=== PATIENT | female | born 1995 | race Caucasian/White ===

== ENCOUNTER 2019-12-29 17:17 | Inpatient (IN) | payer MEDICAID ==
[~2019-12-29] VITALS: Ht 160 cm; Wt 69.4 kg
[2019-12-29 17:47] LABS: APPEARANCE,URINE CLOUDY (CLEAR); BILIRUBIN,URINE MODERATE (NEGATIVE); COLOR,URINE YELLOW (YELLOW); GLUCOSE, URINE (UA) NEGATIVE (NEGATIVE); KETONES,URINE NEGATIVE (NEGATIVE); LEUKOCYTE ESTERASE ,URINE NEGATIVE (NEGATIVE); NITRATE,URINE NEGATIVE (NEGATIVE); OCCULT BLOOD,URINE TRACE-INTACT (NEGATIVE); PH,URINE 8.5 (5.0-8.0); PROTEIN,URINE 100 mg/dL (NEGATIVE); UROBILINOGEN,URINE >=8.0 mg/dL (0.2-1.0)
[2019-12-29 18:00] LABS: HCG,QUAL RESULT NEGATIVE (NEGATIVE)
[2019-12-29] MEDS ORDERED: ONDANSETRON HCL 4 MG/2 ML VIAL ONE (18:00)
[2019-12-29] MEDS ORDERED: KETOROLAC TROMETHAMINE 30MG/ML ONE (18:00)
[2019-12-29 18:06] LABS: HEMATOCRIT 37.9 % (36-48); LYMPHOCYTES % (AUTO) 22.9 % (21.0-51.0); MEAN CORPUSCULAR HEMOGLOBIN 30.9 pg (27.0-33.0); MEAN CORPUSCULAR HGB CONC 36.4 g/dL (32.0-36.0); MEAN CORPUSCULAR VOLUME 84.8 fL (79-99); MONOCYTES % (AUTO) 10.8 % (3.0-13.0); NEUTROPHILS % (AUTO) 65.7 % (40.0-77.0); PLATELET COUNT (AUTO) 53 K/uL (130-400); RED BLOOD CELL COUNT(AUTO) 4.47 MIL/uL (4.00-5.50); RED CELL DISTRIBUTION WIDTH 12.4 % (11.0-15.5); WHITE BLOOD COUNT (AUTO) 1.7 K/uL (4.8-10.8)
[2019-12-29 18:15] LABS: BACTERIA,URINE Few /HPF (None Seen); SQUAMOUS EPITHELIAL CELL,UR Moderate /HPF (0-2); TRANSITIONAL EPI CELLS,URINE Few /HPF (None Seen)
[2019-12-29 18:35] LABS: CREATININE 0.8 mg/dL (0.5-1.5); POTASSIUM 3.9 mmol/L (3.5-5.1)
[2019-12-29 18:45] LABS: ALBUMIN 3.6 g/dL (3.5-5.0); BILIRUBIN,TOTAL 2.6 mg/dL (0.2-1.0); TOTAL PROTEIN, SERUM 6.7 g/dL (6.0-8.3)
[2019-12-29] MEDS ORDERED: CEFTRIAXONE SODIUM 1 GM ONE (18:56)
[2019-12-29] MEDS ORDERED: SODIUM CHLORIDE 0.9% 100 ML IV ONE (18:56)
[2019-12-29] MEDS ORDERED: ONDANSETRON ODT 4 MG TAB PO PRN (20:15)
[2019-12-29] MEDS ORDERED: ACETAMINOPHEN 325 MG TAB ONE (20:28)
[2019-12-29 20:48] LABS: INR 1.14 (0.85-1.15); PARTIAL THROMBOPLASTIN TIME 46.4 SEC (26.3-35.5); PROTHROMBIN TIME 12.2 SEC (9.6-11.6)
[2019-12-29 22:35] VITALS: BP 111/63
--- NOTE | 2019-12-29 22:45 | NUR ---
ADMIT NOTE ADMIT TO ROOM 311 VIA STRETCHER FROM ER. PATIENT AWAKE, ALERT, OX3, NO SOB, NO C.O PAIN AT THIS TIME, RIGHT FOREARM 20 GAUGE CATHETER PATENT, TEACH PATIENT PLAN OF CARE AND EXPECTED OUTCOME, PATIENT VERBALIZES UNDERSTANDING VIA TEACH BACK
[2019-12-29] MEDS ORDERED: NITR100C9 PO (22:50)
[2019-12-29] MEDS ORDERED: NAPR250T4 PO (22:50)
[2019-12-30 04:00] VITALS: BP 112/62
[2019-12-30 04:58] LABS: HEMATOCRIT 33.7 % (36-48); MEAN CORPUSCULAR HEMOGLOBIN 30.8 pg (27.0-33.0); MEAN CORPUSCULAR HGB CONC 36.8 g/dL (32.0-36.0); MEAN CORPUSCULAR VOLUME 83.6 fL (79-99); PLATELET COUNT (AUTO) 41 K/uL (130-400); RED BLOOD CELL COUNT(AUTO) 4.03 MIL/uL (4.00-5.50); RED CELL DISTRIBUTION WIDTH 12.4 % (11.0-15.5); WHITE BLOOD COUNT (AUTO) 1.5 K/uL (4.8-10.8)
[2019-12-30 05:22] LABS: CREATININE 0.7 mg/dL (0.5-1.5); POTASSIUM 3.8 mmol/L (3.5-5.1)
[2019-12-30 08:00] VITALS: BP 108/68
[2019-12-30 11:00] VITALS: BP 105/63
--- NOTE | 2019-12-30 11:00 | NUR ---
NO ANSWER TO CONTACT NUMBERS . W WILL RE ATTEMPT DETIALED CM ASSESSMENT FOR DC PLANNING Addendum: 12/31/19 at 1917 by SAROJ MAYA RN CM Amended: Links added.
[2019-12-30] MEDS: ZOSYN 3.375GM+NS 50ML 50 ML IV SCH ×2 (14:34→21:03)
[2019-12-30] MEDS: MORPHINE SULFATE 2 MG/ML 1ML SYG IVP PRN ×2 (14:37→20:17)
[2019-12-30] MEDS: ONDANSETRON HCL 4 MG/2 ML VIAL IVP PRN ×3 (14:37→20:17)
[2019-12-30] MEDS: DEXTROSE 5 % AND 0.9 % NACL 1,000 ML IV SCH (14:49)
[2019-12-30 16:00] VITALS: BP 103/58
[2019-12-30] MEDS: DOXYCYCLINE 100MG+NS 250ML 250 ML IV SCH (16:19)
[2019-12-30] MEDS: ACETAMINOPHEN 325 MG TAB PO PRN (16:32)
[2019-12-30] MEDS ORDERED: CEFTRIAXONE SODIUM 1 GM IVP SCH (18:00)
[2019-12-30 19:54] VITALS: BP 95/57
[2019-12-30 20:35] LABS: AMPHET/METH SCREEN,URINE NEGATIVE (NEGATIVE); BARBITURATE SCREEN, URINE NEGATIVE (NEGATIVE); BENZODIAZEPINES SCREEN,URINE NEGATIVE (NEGATIVE); CANNABINOID SCREEN,URINE POSITIVE (NEGATIVE); COCAINE SCREEN,URINE POSITIVE (NEGATIVE); OPIATE SCREEN,URINE NEGATIVE (NEGATIVE); PHENCYCLIDINE SCREEN,URINE NEGATIVE (NEGATIVE)
[2019-12-31] VITALS (13 sets, daily range): BP systolic 90–115; BP diastolic 50–69
[2019-12-31] MEDS: DOXYCYCLINE 100MG+NS 250ML 250 ML IV SCH ×2 (01:15→12:42)
[2019-12-31] MEDS: DEXTROSE 5 % AND 0.9 % NACL 1,000 ML IV SCH ×2 (01:15→19:37)
[2019-12-31] MEDS: ONDANSETRON HCL 4 MG/2 ML VIAL IVP PRN ×3 (01:59→17:31)
[2019-12-31] MEDS: ACETAMINOPHEN 325 MG TAB PO PRN ×3 (01:59→22:01)
[2019-12-31] MEDS: MORPHINE SULFATE 2 MG/ML 1ML SYG IVP PRN ×3 (01:59→17:31)
[2019-12-31] MEDS: ZOSYN 3.375GM+NS 50ML 50 ML IV SCH ×3 (05:35→21:38)
[2019-12-31] MEDS ORDERED: MIDAZOLAM HCL 1 MG/ML 2ML VIAL ONE (14:14)
[2019-12-31] MEDS ORDERED: FENTANYL CITRATE PF 50 MCG/1 ML 2ML VIAL ONE (14:14)
--- NOTE | 2019-12-31 15:15 | NUR ---
CT GD RT ILIAC BONE MARROW BX/ASPIRATION PROCEDURE PERFORMED BY DR Jade ZHAO. PUNCTURE SITE RT BOTTOCK AND PATIENT TOLERATED PROCEDURE WELL. SPECIMEN X 8 COLLECTED AND SENT TO LAB. END OF PROCEDURE AT 1455. BIOPSY NEEDLE REMOVED AND DRESSING APPLIED. NO BLEEDING NOTED. REPORT GIVEN TO Radha CHEN LVN AND PATIENT TRANSPORTED TO [facility] VIA BED AT 1515. AAO X3 WITH NO C/O PAIN.
--- NOTE | 2019-12-31 16:00 | NUR ---
MET WITH PATIENT AT BEDSIDE. LIVES WITH DAUGHTER . CHERELLE AND SISTER PROVIDER SERGE. INDEPENDENT, DRIVES, NO TRINO BROUSSARD FOR DC PLANNING Addendum: 12/31/19 at 1916 by SAROJ MAYA RN CM Amended: Links added.
--- NOTE | 2019-12-31 17:00 | NUR ---
DISCUSSED PATIENT'S POSITIVE UDS. PT STATES YES SHE TIRED IT ONCE , BUT THAT HER 'BOYFRIEND ALSO TOOK SOME AT THE SAME TIME AND HE IS FINE, SO IT CAN'T BE THAT.' COUNSELLED PATIENT ON THE PERILS OF DRUG ADDITIVES AND FILLERS. PATIENT TEARFUL. STATES WILL AVOID INGESTING TOXINS IN THE FUTURE Addendum: 12/31/19 at 1920 by SAROJ MAYA RN CM Amended: Links added.
--- NOTE | 2019-12-31 21:00 | NUR ---
assessment note patient awake, alert, ox3, no sob, no c/o pain at this time, encourage po fluids as tolerated, ivf infusing well, dressing lower back intact with minimal shadowing, teach patient plan of care and expected outcome
[2020-01-01] VITALS (7 sets, daily range): BP systolic 82–119; BP diastolic 43–72
[2020-01-01] MEDS: ONDANSETRON HCL 4 MG/2 ML VIAL IVP PRN ×2 (00:03→10:28)
[2020-01-01] MEDS: MORPHINE SULFATE 2 MG/ML 1ML SYG IVP PRN ×3 (00:04→23:46)
[2020-01-01] MEDS: DOXYCYCLINE 100MG+NS 250ML 250 ML IV SCH ×2 (00:04→12:43)
[2020-01-01] MEDS: ACETAMINOPHEN 325 MG TAB PO PRN ×3 (03:18→21:05)
[2020-01-01] MEDS: ZOSYN 3.375GM+NS 50ML 50 ML IV SCH ×3 (04:51→21:08)
[2020-01-01] MEDS: DEXTROSE 5 % AND 0.9 % NACL 1,000 ML IV SCH ×2 (04:59→12:43)
[2020-01-01 06:06] LABS: HEMATOCRIT 30.5 % (36-48); MEAN CORPUSCULAR HEMOGLOBIN 30.8 pg (27.0-33.0); MEAN CORPUSCULAR HGB CONC 36.7 g/dL (32.0-36.0); MEAN CORPUSCULAR VOLUME 83.8 fL (79-99); RED BLOOD CELL COUNT(AUTO) 3.64 MIL/uL (4.00-5.50); RED CELL DISTRIBUTION WIDTH 12.4 % (11.0-15.5); WHITE BLOOD COUNT (AUTO) 4.2 K/uL (4.8-10.8)
[2020-01-01 06:40] LABS: ALBUMIN 2.4 g/dL (3.5-5.0); BILIRUBIN,TOTAL 1.5 mg/dL (0.2-1.0); CREATININE 0.9 mg/dL (0.5-1.5); MAGNESIUM 1.8 mg/dL (1.80-2.40); POTASSIUM 3.5 mmol/L (3.5-5.1); TOTAL PROTEIN, SERUM 5.1 g/dL (6.0-8.3)
[2020-01-01 07:15] LABS: HEPATITIS A ANTIBODY IGM Negative (Negative); HEPATITIS B CORE IGM Negative (Negative); HEPATITIS Bs ANTIGEN SCREEN P Negative (Negative)
[2020-01-02] MEDS: DOXYCYCLINE 100MG+NS 250ML 250 ML IV SCH ×2 (01:26→13:56)
[2020-01-02 03:30] VITALS: BP 105/72
[2020-01-02] MEDS: ACETAMINOPHEN 325 MG TAB PO PRN ×3 (04:47→15:23)
[2020-01-02] MEDS: ZOSYN 3.375GM+NS 50ML 50 ML IV SCH ×3 (05:37→21:11)
[2020-01-02 08:36] VITALS: BP 109/74
[2020-01-02 11:49] VITALS: BP 107/80
[2020-01-02] MEDS: ONDANSETRON HCL 4 MG/2 ML VIAL IVP PRN ×2 (14:41→19:34)
[2020-01-02] MEDS: MORPHINE SULFATE 2 MG/ML 1ML SYG IVP PRN ×2 (14:41→21:11)
[2020-01-02 16:14] VITALS: BP 111/79
[2020-01-02] MEDS: DEXTROSE 5 % AND 0.9 % NACL 1,000 ML IV SCH ×2 (17:13→21:15)
[2020-01-02 19:20] VITALS: BP 102/64
[2020-01-02 23:46] VITALS: BP 92/57
[2020-01-03] MEDS ORDERED: DOXYCYCLINE 100MG+NS 250ML 250 ML IV ONE (01:33)
[2020-01-03] MEDS: DEXTROSE 5 % AND 0.9 % NACL 1,000 ML IV SCH (01:38)
[2020-01-03] MEDS: DOXYCYCLINE 100MG+NS 250ML 250 ML IV SCH ×2 (01:39→12:32)
[2020-01-03 03:44] VITALS: BP 106/64
[2020-01-03] MEDS: MORPHINE SULFATE 2 MG/ML 1ML SYG IVP PRN ×2 (03:47→10:38)
[2020-01-03] MEDS: ZOSYN 3.375GM+NS 50ML 50 ML IV SCH ×2 (05:49→15:00)
[2020-01-03 08:12] VITALS: BP 109/75
[2020-01-03] MEDS: ONDANSETRON HCL 4 MG/2 ML VIAL IVP PRN (10:38)
[2020-01-03] MEDS ORDERED: MAGNESIUM 4GM PREMIX 100ML 100 ML IV PRN (11:30)
[2020-01-03 12:19] LABS: HEMATOCRIT 30.3 % (36-48); MEAN CORPUSCULAR HEMOGLOBIN 30.3 pg (27.0-33.0); MEAN CORPUSCULAR HGB CONC 36.6 g/dL (32.0-36.0); MEAN CORPUSCULAR VOLUME 82.8 fL (79-99); RED BLOOD CELL COUNT(AUTO) 3.66 MIL/uL (4.00-5.50); RED CELL DISTRIBUTION WIDTH 12.9 % (11.0-15.5); WHITE BLOOD COUNT (AUTO) 9.2 K/uL (4.8-10.8)
[2020-01-03 12:30] LABS: CREATININE 0.7 mg/dL (0.5-1.5); POTASSIUM 3.2 mmol/L (3.5-5.1)
--- NOTE | 2020-01-03 14:11 | NUR ---
RD NOTIFICATION Pt admitted with UTI. No significant medical history. Regular diet order in place. Pt with poor PO intake. Stays hydrated but disinterested in food as per RN. Pt previously with N/V. Pending CT. Elevated LFT's. Room phone not working. Overweight status. No report of weight loss. Recommend offering snacks between meals Recommend trial of Ensure QD RD to continue to monitor. Please notify as additional nutrition concerns arise. Thank you. Addendum: 01/03/20 at [address] Amended: Links added.
[2020-01-03] MEDS ORDERED: POTASSIUM CHLORIDE 20 MEQ ERTAB PO SCH (14:15)
[2020-01-03 14:57] VITALS: BP 103/67
[2020-01-03] MEDS ORDERED: DIATR MEGLU/DIATRIZOATE SODIUM 30 ML BOTTLE ONE (15:22)
[2020-01-03 16:10] LABS: ROCKY MT SPOTTED FEVER IGG <1:64 (Neg:<1:64); TYPHUS FEVER AB IGG <1:64 (Neg:<1:64)
[2020-01-03] MEDS ORDERED: IOHEXOL-350 75 ML VIAL IV ONE (17:22)
[2020-01-03] MEDS: ACETAMINOPHEN 325 MG TAB PO PRN (18:54)
--- NOTE | 2020-01-03 19:50 | NUR ---
CT RESULT REPORTED TO DR QUINTERO AND ORDERS RECEIVED TO DISCHARGE PATIENT FOLLOW-UP WITH DR ERNST IN ONE WEEK
[2020-01-03 20:13] VITALS: BP 107/71
--- NOTE | 2020-01-03 20:36 | NUR ---
DISCHARGE INSTRUCTIONS GIVEN TO PATIENT. PT VERBALIZED AN UNDERSTANDING. IV REMOVED WITH CATH INTACT. PT ACCOMPANIED TO ER LOBBY FOR DISCHARGE. NO DISTRESS NOTED.
== END 2020-01-03 20:35 | disposition home or self-care (01) | DRG 720 ==
LOC: EDH 17:17 → EDHIP 17:18 → UNDOADMIN 19:48 → 3BH 21:18
PROVIDERS: ADMIT Internal Medicine Infectious Disease; ATTEND Internal Medicine Infectious Disease
PROC: 07DR3ZX Extraction of Iliac Bone Marrow, Percutaneous Approach, Diagnostic (ICD-10-PCS; principal; 2019-12-31)
DX: A41.9 Sepsis, unspecified organism (principal); N39.0 Urinary tract infection, site not specified; D61.818 Other pancytopenia; F14.10 Cocaine abuse, uncomplicated; F12.10 Cannabis abuse, uncomplicated; R74.8 Abnormal levels of other serum enzymes; Z20.828 Contact with and (suspected) exposure to other viral communicable diseases; E83.42 Hypomagnesemia; E87.6 Hypokalemia; F19.10 Other psychoactive substance abuse, uncomplicated
CPT/HCPCS: 36415; 38222; 74176; 74177; 80048; 80053; 80074; 80305; 81001; 81025; 82550; 83605; 83735; 84145; 85025; 85027; 85610; 85730; 86308; 86665; 86701; 86757; 87040; 87390; 87486; 87536; 87797; 87902; G0378; J0696; J1885; J2250; J2405; J2543; J3010; J3475; J3490; J7042; Q9963; Q9967; U0003

== ENCOUNTER 2020-10-04 18:13 | Emergency (ER) | payer MEDICAID ==
[~2020-10-04] VITALS: Ht 160 cm; Wt 70.3 kg
[~2020-10-04 18:13] MED LIST: NAPR-1196 PO; NITR100C9 PO
[2020-10-04 18:44] LABS: BASOPHILS % (AUTO) 0.3 % (0.0-5.0); EOSINOPHILS % (AUTO) 1.2 % (0.0-8.0); HEMATOCRIT 42.8 % (36-48); LYMPHOCYTES % (AUTO) 12.1 % (21.0-51.0); MEAN CORPUSCULAR HEMOGLOBIN 32.6 pg (27.0-33.0); MEAN CORPUSCULAR VOLUME 90.7 fL (79-99); MONOCYTES % (AUTO) 8.2 % (3.0-13.0); NEUTROPHILS % (AUTO) 77.9 % (40.0-77.0); PLATELET COUNT (AUTO) 229 K/uL (130-400); RED BLOOD CELL COUNT(AUTO) 4.72 MIL/uL (4.00-5.50); RED CELL DISTRIBUTION WIDTH 12.3 % (11.0-15.5); WHITE BLOOD COUNT (AUTO) 7.3 K/uL (4.8-10.8)
[2020-10-04 18:56] LABS: CREATININE 0.9 mg/dL (0.5-1.5); POTASSIUM 4.2 mmol/L (3.5-5.1)
[2020-10-04 19:01] LABS: ALBUMIN 4.5 g/dL (3.5-5.0); BILIRUBIN,TOTAL 0.8 mg/dL (0.2-1.0); TOTAL PROTEIN, SERUM 7.8 g/dL (6.0-8.3)
[2020-10-04 19:05] LABS: INR 1.04 (0.85-1.15); PROTHROMBIN TIME 11.3 SEC (9.6-11.6)
[2020-10-04 19:06] LABS: PARTIAL THROMBOPLASTIN TIME 26.6 SEC (26.3-35.5)
[2020-10-04 21:01] VITALS: BP 91/77
[2020-10-04] MEDS ORDERED: ACETAMINOPHEN WITH CODEINE 1 TAB TAB PO ONE (21:35)
[2020-10-04] MEDS ORDERED: PHEN1PAC8 PO (22:00)
== END 2020-10-04 22:09 | disposition home or self-care (01) ==
LOC: EDH 18:13
DX: J06.9 Acute upper respiratory infection, unspecified (principal); Z20.822 Contact with and (suspected) exposure to COVID-19; Z79.1 Long term (current) use of non-steroidal anti-inflammatories (NSAID)
CPT/HCPCS: 36415; 71045; 80053; 81025; 85025; 85610; 85730; 87426; 87635; 87804 ×2; 99284; C9803

== ENCOUNTER 2022-03-24 09:19 | Emergency (ER) | payer MEDICAID ==
[~2022-03-24] VITALS: Ht 160 cm; Wt 68.0 kg
[~2022-03-24 09:19] MED LIST changes: +PHEN1PAC8 PO
[2022-03-24 09:42] LABS: BASOPHILS % (AUTO) 0.5 % (0.0-5.0); EOSINOPHILS % (AUTO) 2.4 % (0.0-8.0); HEMATOCRIT 45.9 % (36-48); LYMPHOCYTES % (AUTO) 25.8 % (21.0-51.0); MEAN CORPUSCULAR HEMOGLOBIN 32.2 pg (27.0-33.0); MEAN CORPUSCULAR HGB CONC 36.4 g/dL (32.0-36.0); MEAN CORPUSCULAR VOLUME 88.4 fL (79-99); MONOCYTES % (AUTO) 9.7 % (3.0-13.0); NEUTROPHILS % (AUTO) 61.4 % (40.0-77.0); PLATELET COUNT (AUTO) 242 K/uL (130-400); RED BLOOD CELL COUNT(AUTO) 5.19 MIL/uL (4.00-5.50); RED CELL DISTRIBUTION WIDTH 12.2 % (11.0-15.5); WHITE BLOOD COUNT (AUTO) 8.4 K/uL (4.8-10.8)
[2022-03-24 09:51] LABS: CARBON DIOXIDE 28 mmol/L (21-32); CHLORIDE 102 mmol/L (101-111); CREATININE 0.8 mg/dL (0.5-1.5); GLOMERULAR FILTR. RATE CALC 91 mL/min (>60); GLUCOSE,RANDOM 97 mg/dL (70-105); POTASSIUM 3.6 mmol/L (3.5-5.1); SODIUM SERUM 140 mmol/L (136-145); UREA NITROGEN, BLOOD 16 mg/dL (7-18)
[2022-03-24 09:59] LABS: APPEARANCE,URINE CLEAR (CLEAR); BILIRUBIN,URINE NEGATIVE (NEGATIVE); COLOR,URINE LIGHT-YELLOW (YELLOW); GLUCOSE, URINE (UA) NEGATIVE (NEGATIVE); KETONES,URINE NEGATIVE (NEGATIVE); LEUKOCYTE ESTERASE ,URINE NEGATIVE Leu/uL (NEGATIVE); NITRATE,URINE NEGATIVE (NEGATIVE); OCCULT BLOOD,URINE SMALL (NEGATIVE); PH,URINE 6.5 (5.0-8.0); PROTEIN,URINE NEGATIVE (NEGATIVE); UROBILINOGEN,URINE 0.2 mg/dL (0.2-1.0)
[2022-03-24 10:01] LABS: ALANINE AMINOTRANSFERASE 62 U/L (12-78); ALBUMIN 4.6 g/dL (3.5-5.0); ALCOHOL, BLOOD < 3 mg/dL (0-10); ASPARTATE AMINOTRANSFERASE 39 U/L (10-37); HCG,QUANTITATIVE 0 mIU/mL (0-5); TOTAL PROTEIN, SERUM 8.2 g/dL (6.0-8.3)
[2022-03-24 10:02] LABS: AMPHET/METH SCREEN,URINE NEGATIVE (NEGATIVE); BARBITURATE SCREEN, URINE NEGATIVE (NEGATIVE); BENZODIAZEPINES SCREEN,URINE NEGATIVE (NEGATIVE); CANNABINOID SCREEN,URINE POSITIVE (NEGATIVE); COCAINE SCREEN,URINE POSITIVE (NEGATIVE); OPIATE SCREEN,URINE NEGATIVE (NEGATIVE); PHENCYCLIDINE SCREEN,URINE NEGATIVE (NEGATIVE)
[2022-03-24 10:08] LABS: ACETAMINOPHEN < 1 mcg/mL (10-30); SALICYLATE < 2.8 mg/dL (2.8-20.0)
[2022-03-24 10:35] LABS: BACTERIA,URINE RARE /HPF (None Seen); SQUAMOUS EPITHELIAL CELL,UR MOD /HPF (0-2)
[2022-03-24 10:44] LABS: ALCOHOL, BLOOD < 3 mg/dL (0-10); CREATINE KINASE, TOTAL 113 U/L (21-232)
[2022-03-24 10:50] LABS: ACETAMINOPHEN < 1 mcg/mL (10-30); SALICYLATE < 2.8 mg/dL (2.8-20.0)
[2022-03-24 12:25] VITALS: BP 131/81
== END 2022-03-24 14:19 | disposition home or self-care (01) ==
LOC: EDH 09:19
DX: F22 Delusional disorders (principal); F19.10 Other psychoactive substance abuse, uncomplicated; D64.9 Anemia, unspecified; Z20.822 Contact with and (suspected) exposure to COVID-19
CPT/HCPCS: 99285; 71045; 87635; 82550; 84484; 80053; 80305; 84703; 84702; 85025; 87880; 87804 ×2; 81001; 36415; 93005 ×2; C9803; G0481 ×2

== ENCOUNTER 2022-11-02 11:54 | Emergency (ER) | payer MEDICAID ==
[~2022-11-02] VITALS: Ht 160 cm; Wt 68.0 kg
[2022-11-02 12:27] LABS: BASOPHILS % (AUTO) 0.3 % (0.0-5.0); EOSINOPHILS % (AUTO) 0.1 % (0.0-8.0); HEMATOCRIT 37.7 % (36-48); MEAN CORPUSCULAR HEMOGLOBIN 31.9 pg (27.0-33.0); MEAN CORPUSCULAR HGB CONC 36.6 g/dL (32.0-36.0); MEAN CORPUSCULAR VOLUME 87.3 fL (79-99); MONOCYTES % (AUTO) 7.8 % (3.0-13.0); NEUTROPHILS % (AUTO) 85.5 % (40.0-77.0); PLATELET COUNT (AUTO) 188 K/uL (130-400); RED BLOOD CELL COUNT(AUTO) 4.32 MIL/uL (4.00-5.50); WHITE BLOOD COUNT (AUTO) 10.9 K/uL (4.8-10.8)
[2022-11-02 12:33] LABS: APPEARANCE,URINE CLEAR (CLEAR); BILIRUBIN,URINE NEGATIVE (NEGATIVE); COLOR,URINE YELLOW (YELLOW); GLUCOSE, URINE (UA) NEGATIVE (NEGATIVE); KETONES,URINE NEGATIVE (NEGATIVE); LEUKOCYTE ESTERASE ,URINE NEGATIVE Leu/uL (NEGATIVE); NITRATE,URINE NEGATIVE (NEGATIVE); OCCULT BLOOD,URINE SMALL (NEGATIVE); PH,URINE 6.5 (5.0-8.0); PROTEIN,URINE 10 mg/dL (NEGATIVE)
[2022-11-02 12:38] LABS: HCG,QUALITATIVE URINE NEGATIVE (NEGATIVE)
[2022-11-02 12:40] LABS: SQUAMOUS EPITHELIAL CELL,UR MOD /HPF (0-2)
[2022-11-02 12:47] LABS: ALBUMIN 3.9 g/dL (3.5-5.0); CREATININE 0.7 mg/dL (0.5-1.5); POTASSIUM 3.2 mmol/L (3.5-5.1); TOTAL PROTEIN, SERUM 7.6 g/dL (6.0-8.3)
[2022-11-02] MEDS ORDERED: KETOROLAC 30MG VIAL (30MG/ML) ONE (13:08)
[2022-11-02] MEDS ORDERED: KETOROLAC 30MG VIAL (30MG/ML) IVP ONE (13:30)
[2022-11-02] MEDS ORDERED: CEFTRIAXONE 1G VIAL IVPB ONE (14:30)
[2022-11-02] MEDS ORDERED: MORPHINE 4 MG SYG IVP ONE (15:30)
[2022-11-02] MEDS ORDERED: ONDANSETRON 4MG INJ ONE (16:04)
[2022-11-02] MEDS ORDERED: IBUP-2070 PO (16:22)
[2022-11-02] MEDS ORDERED: CIPR-278 PO (16:22)
[2022-11-02] MEDS ORDERED: ONDANSETRON 4MG INJ IVP ONE (16:30)
[2022-11-02 16:33] VITALS: BP 121/77
== END 2022-11-02 16:35 | disposition home or self-care (01) ==
LOC: EDH 11:54
DX: N20.0 Calculus of kidney (principal)
CPT/HCPCS: 99285; 74176; 96365; 96375; 80053; 85025; 87040 ×2; 83605; 81001; 81025; 36415; J0696; J2405; J2270; J1885

== ENCOUNTER 2024-06-08 11:45 | Emergency (ER) | payer SELFPAY ==
[~2024-06-08] VITALS: Ht 160 cm; Wt 77.1 kg
[~2024-06-08 11:45] MED LIST changes: +CIPR-278 PO; +IBUP-2070 PO
--- NOTE | 2024-06-08 12:15 | ERN ---
ED Note History of Present Illness Stated Complaint: FEVER 103, NOT FEELING WELL Chief Complaint: Flu Symptoms Dictation: The patient is a 29-year-old female with no significant past medical history presented to emergency department today with the chief complaints of fever with chills and body aches. She woke up today with the symptoms, checked the temperature it was 103, also has a associated body aches, sinus tenderness and headaches. She traveled to [place] 4 days ago for 4-5 hours. Denies any exposure to sick contacts. She has urinary urgency but denies burning while micturition. She denies nausea, vomiting, diarrhea, sore throat, body aches, constipation. Allergies: Coded Allergies: No Known Allergies (Verified Allergy, Unknown, 12/29/19) Home Meds Active Scripts Cephalexin (Cephalexin) 500 Mg Tablet, 1 TAB PO BID for 7 Days, #14 TAB 0 Refills Prov:BRANDI VANG MD 06/08/24 Oseltamivir Phosphate (Tamiflu) 75 Mg Cap, 1 CAP PO BID for 5 Days, #10 CAP 0 Refills Prov:BRANDI VANG MD 06/08/24 Ibuprofen (Ibuprofen) 600 Mg Tablet, 600 MG PO Q6H PRN for PAIN, #30 TAB 0 Refills Prov:DANIELLE WILKINS MD 11/02/22 Ciprofloxacin HCl (Cipro) 500 Mg Tablet, 1 TAB PO BID for 10 Days, #20 TAB 0 Refills Prov:ADNIELLE WILKINS MD 11/02/22 Phenylephrine/Acetaminophn/Pnm (Theraflu Flu & Sore Throat) 1 Each Packet, 1 EACH PO QID, #20 PKT Prov:VIRGEN NAVARRO 10/04/20 Reported Medications Naproxen (Naproxen) 250 Mg Tablet, 250 MG PO BID, TAB 12/29/19 Nitrofurantoin Monohyd/M-Cryst (Nitrofurantoin Mclean-Mcr 100 mg) 100 Mg Capsule, 100 MG PO BID, CAP 12/29/19 Past Medical History Past Medical History: Other Additional Past Medical Hx: HX OF HEART MURMUR Surgical History: Surgical History Other: C-SEC Family History: Negative Social History: Negative History: Not Applicable Review of System Dictation REVIEW OF SYSTEMS CONSTITUTIONAL: Complaints of fevers, chills, body aches no night sweats. No unintentional weight loss reported. NEUROLOGICAL: Complaints of headache, no amaurosis fugax, motor weakness, sensory deficit, vertigo/spinning sensation, gait abnormalities, or tremors. ENT: No hearing loss, otalgia, otorrhea, rhinitis, rhinorrhea, hoarseness, or sore throat. CARDIOVASCULAR: Denies any exertional angina, dyspnea on exertion, orthopnea, paroxysmal nocturnal dyspnea, palpitations, life-threatening arrhythmias, claudication. PULMONARY: Denies any shortness of breath, cough, phlegm/sputum, hemoptysis, pleuritic chest pain. SLEEP: Denies morning headaches, daytime somnolence or napping. Denies difficulty falling asleep, staying asleep, waking from sleep. Denies knowledge of snoring. GASTROINTESTINAL: Denies any type of dysphagia to either liquids or solids. Denies nausea, vomiting, pyrosis, early satiety, abdominal pain, diarrhea, constipation, or changes in stool consistency or caliber. Denies coffee-ground emesis, hematemesis, hematochezia, or melanotic stools. GENITOURINARY: Denies frequency, urgency, nocturia, hematuria or incontinence (Storage/Irritative symptoms.) Low urinary stream, straining to void, urinary intermittency or hesitancy, splitting of the voiding stream, terminal dribbling. ENDOCRINOLOGIC: Denies polyuria, polydipsia, polyphagia or heat/cold intoleran althea. HEMATOLOGIC: Denies thrombophilia/previous clots, or coagulopathy/bleeding disorders. ONCOLOGIC: Denies personal history of malignancy. DERMATOLOGIC: Denies rashes or pruritus. PSYCHIATRIC: Denies any suicidal or homicidal ideation. Denies hallucinations. Initial Vital Sign VS Vital Signs Date Time Temp Pulse Resp B/P (MAP) Pulse Ox O2 Delivery O2 Flow Rate FiO2 06/08/24 12:05 100.6 96 18 111/78 100 Room Air 0 06/08/24 15:08 21 Physical Exam Dictation PHYSICAL EXAM GENERAL APPEARANCE: The patient is awake, alert, and oriented, in no acute cardiopulmonary distress. NEUROLOGICAL: Cranial nerves II-XII grossly intact. Motor is 5/5 in bilateral upper and lower extremities proximal to distal. No sensory deficits. HEENT: Face is symmetric. Pupils are equal and reactive. Extraocular movements are intact. NECK: Supple. No JVD. No thyromegaly. No submental, submandibular, pre- /postauricular, occipital or supraclavicular lymphadenopathy. CHEST: Normal chest expansion. No Telemetry. LUNGS: Absence of any rales, rhonchi or any wheezing. CARDIOVASCULAR: Regular. S1 and S2 normal. No appreciable rubs, murmurs or gallops. ABDOMEN: Soft, nontender, and nondistended. There is no rebound, voluntary guarding, or rigidity. : Deferred. No Briones. EXTREMITIES: Non-edematous and not cyanotic. No clubbing. Good capillary refill. SKIN: No skin breakdown. Results (Laboratory/Radiology) Laboratory/Radiology Laboratory Tests Test 06/08/24 13:16 06/08/24 15:15 Influenza Type A Antigen Negative For Type A Influenza Type B Antigen Positive For Type B SARS-CoV-2 Antigen (Rapid) PRESUMPTIVE NEGATIVE Group A Streptococcus Rapid negative (NEGATIVE) Urine Color YELLOW (YELLOW) Urine Appearance CLOUDY (CLEAR) H Urine pH 5.5 (5.0-8.0) Urine Specific [place] 1.025 (1.001-1.031) Urine Protein 30 mg/dL (NEGATIVE) H Urine Glucose (UA) NEGATIVE mg/dL (NEGATIVE) Urine Ketones 5 mg/dL (NEGATIVE) H Urine Occult Blood MODERATE (NEGATIVE) H Urine Nitrate NEGATIVE (NEGATIVE) Urine Bilirubin NEGATIVE mg/dL (NEGATIVE) Urine Urobilinogen 0.2 mg/dL (0.2-1.0) Urine Leukocyte Esterase 25 Muna/uL (NEGATIVE) H Urine RBC 6-10 /HPF (0-1) H Urine WBC 6-10 /HPF (0-1) H Urine Squamous Epithelial Cells MOD /HPF (0-2) Urine Bacteria RARE /HPF (None Seen) ED Course ED Course Orders Procedure Category Date Status Time Covid19 (Sars Antigen LAB 06/08/24 Complete Rapid) 12:13 Influenza Type A & B, LAB 06/08/24 Complete Rapid 12:13 Rapid (Group A Strep) LAB 06/08/24 Complete 12:13 Acetaminophen 500mg PHA 06/08/24 Complete Tab (Tylenol 500mg T 12:30 Urinalysis Profile LAB 06/08/24 Complete 12:43 12 Lead Ekg Tracing- EKG 06/08/24 Complete Technical 12:11 Ibuprofen 600 Mg PHA 06/08/24 Complete Tablet (Motrin) 16:30 Culture Urine SHELIA 06/08/24 Logged 16:26 Current Medications Medications (Trade) Dose Ordered Sig/Yaz Route PRN Reason Start Time Stop Time Status Last Admin Dose Admin Acetaminophen (TYLenol 500MG TAB) 500 mg ONCE ONCE PO 06/08/24 12:30 06/08/24 12:31 DC 06/08/24 15:07 Ibuprofen (moTRIN) 600 mg ONCE ONCE PO 06/08/24 16:30 06/08/24 16:31 DC 06/08/24 16:21 Vital Signs Date Time Temp Pulse Resp B/P (MAP) Pulse Ox O2 Delivery O2 Flow Rate FiO2 06/08/24 16:21 100.8 06/08/24 16:01 100.8 96 20 103/60 18 Room Air* 0 21 06/08/24 15:08 101.3 100 20 116/78 98 Room Air* 0 21 06/08/24 15:07 101.3 06/08/24 12:05 100.6 96 18 111/78 100 Room Air 0 12:00 the patient was examined in ED triage room 1. She appears sick, tired and feeling weak. She is comfortable providing the detailed history. Vitals: Temperature 100.6, pulse rate 102, blood pressure 116/78. We will order urinalysis, flu strep and COVID testing. We will decide if the patient requires emergency treatment or inpatient hospitalization based on the clinical status and labs. We will closely monitor the patient. 16:30: The patient is positive for influenza A. Urinalysis showed cloudy appearance, moderate occult blood, trace leukocyte esterase, 6-10 WBC, 6-10 RBC and moderate squamous epithelial cells. The patient has a febrile episode 2 hours after taking Tylenol and was given with ibuprofen 600 mg. At present, she is comfortable and reports somewhat improvement. Based on the laboratory results and clinical findings the patient does not require any emergency treatment or inpatient hospitalization. The plan was discussed with the patient's. The decision was made to discharge the patient with Tamiflu and cephalexin. Medical Decision Making MDM MDM Differential diagnosis: Influenza a, acute viral syndrome, urinary tract infection Rationale: Tests considered and ordered secondary to shared decision making include: Previous outside records reviewed: Old ER visits. Risk of complication and/or morbidity or mortality of patient management: None Medications-Per medication reconciliation Need for hospitalization: Patient does not meet criteria for hospitalization. Need for emergency major/minor surgery: No There are no social concerns with this patient. Prescription drug management Prescriptions will include symptomatic care Patient's prior external medical records from other ER visits were reviewed by me as indicated. Prior testing and results from previous visits were reviewed. Prior tests were taken into account with medical decision making and resource utilization, independent historian/historians were used to obtain complete medical history. I independently interpreted the test that were performed, results were reviewed by me and considered findings on radiology if ordered. DX & DISP Disposition: Discharge Departure Impression: Primary Impression: Influenza A Additional Impressions: Acute viral syndrome, Urinary tract infection Condition: Stable Scripts Cephalexin (Cephalexin) 500 Mg Tablet 1 TAB PO BID for 7 Days, #14 TAB 0 Refills Prov: BRANDI VANG MD 06/08/24 Oseltamivir Phosphate (Tamiflu) 75 Mg Cap 1 CAP PO BID for 5 Days, #10 CAP 0 Refills Prov: BRANDI VANG MD 06/08/24 Additional Instructions: Start taking Tamiflu 75 mg p.o. b.i.d. for 5 days. Start taking cephalexin 500 mg b.i.d. for 7 days Stay home: Avoid contact with others to prevent spreading the flu. Rest: Get enough sleep to help your immune system fight the infection. Drink fluids: Drink water, juice, and warm soups to stay hydrated. Take medicine: Acetaminophen (Tylenol) or ibuprofen (Advil, Motrin IB) can help with fever, headache, and muscle aches. You can also try throat lozenges, hard candy, or warm broths for a sore throat. Cover your mouth and nose: Use a tissue when you cough or sneeze, or cough into your sleeve. Wash your hands: Wash your hands often with soap and water or use hand senior test analyst. Use saline nose drops: Saline nose drops can help loosen mucus. Use oral decongestants: Oral decongestants can help with nasal congestion Visit the nearest emergency department or call 911 should the symptoms returns or gets worse. Referrals: ROYCE PERRY MD (PCP) I have reviewed, & agreed with my scribe's, documentation. I have reviewed the case, and I agree with, Diagnosis and Plan I have examined patient, & reviewed all documents, & agreed W/ the Diagnosis, and Plan BRANDI VANG MD Jun 08, 2024 12:15
[2024-06-08 13:40] LABS: RAPID GROUP A STREP negative (NEGATIVE)
--- NOTE | 2024-06-08 13:45 | EKG ---
[facility] Test Date: 2024-06-08 Test Time: 12:11:59 Pat Name: CAYETANO BATRES Department: [facility] Room: Gender: F [employer] Officer: [id number] : 1995 Requested By: YAKELIN ZUNIGA Order Number: [id number] Reading MD: Edward Hebert Measurements Intervals [place] Rate: 95 P: 24 UT: 138 QRS: 68 QRSD: 81 T: 54 QT: 330 QTc: 415 Interpretive Statements Sinus rhythm Compared to ECG 03/24/2022 09:18:33 Sinus arrhythmia no longer present Electronically Signed On 06-11-2024 17:31:15 [employer] by Edward Hebert Please click the below link to view image of tracing.
[2024-06-08 13:49] LABS: COVID19 (SARS ANTIGEN RAPID) PRESUMPTIVE NEGATIVE (NEGATIVE)
[2024-06-08 13:50] LABS: INFLUENZA TYPE A Negative For Type A (NEGATIVE)
[2024-06-08 14:48] LABS: INFLUENZA TYPE B Positive For Type B (NEGATIVE)
[2024-06-08] MEDS: acetaMINOPHEN 500 MG TABLET PO ONE (15:07)
[2024-06-08] MEDS ORDERED: OSEL75 PO (15:44)
[2024-06-08 16:01] VITALS: BP 103/60; PULSE 96; RESP 20; TEMP 100.7; O2SAT 18
[2024-06-08 16:17] LABS: APPEARANCE,URINE CLOUDY (CLEAR); BILIRUBIN,URINE NEGATIVE (NEGATIVE); COLOR,URINE YELLOW (YELLOW); GLUCOSE, URINE (UA) NEGATIVE (NEGATIVE); KETONES,URINE 5 mg/dL (NEGATIVE); LEUKOCYTE ESTERASE ,URINE 25 Leu/uL (NEGATIVE); NITRATE,URINE NEGATIVE (NEGATIVE); OCCULT BLOOD,URINE MODERATE (NEGATIVE); PH,URINE 5.5 (5.0-8.0); PROTEIN,URINE 30 mg/dL (NEGATIVE); UROBILINOGEN,URINE 0.2 mg/dL (0.2-1.0)
[2024-06-08 16:18] LABS: ADD UA MICROSCOPIC YES
[2024-06-08 16:21] VITALS: TEMP 100.7
[2024-06-08 16:21] LABS: BACTERIA,URINE RARE /HPF (None Seen); MUCUS,URINE FEW LPF (None Seen); SQUAMOUS EPITHELIAL CELL,UR MOD /HPF (0-2)
[2024-06-08] MEDS: ibuPROFEN 600 MG TABLET PO ONE (16:21)
[2024-06-08] MEDS ORDERED: CEPH500T PO (16:31)
== END 2024-06-08 16:53 | disposition home or self-care (01) ==
LOC: EDH 11:45
DX: J10.1 Influenza due to other identified influenza virus with other respiratory manifestations (principal); N39.0 Urinary tract infection, site not specified; B34.9 Viral infection, unspecified; Z20.822 Contact with and (suspected) exposure to COVID-19
CPT/HCPCS: 81001; 87086; 87426; 87804; 87880; 93005; 99284

== ENCOUNTER 2024-12-22 15:44 | Emergency (ER) | payer SELFPAY ==
[~2024-12-22] VITALS: Ht 160 cm; Wt 74.8 kg
[~2024-12-22 15:44] MED LIST changes: +CEPH500T PO; +IBUP-1492 PO; -IBUP-2070 PO; +OSEL75 PO
[2024-12-22 16:11] VITALS: BP 122/83; PULSE 68; RESP 18; TEMP 97.2; O2SAT 97
--- NOTE | 2024-12-22 16:14 | ERN ---
General Chief Complaint: Abscess Stated Complaint: ABSCESS Time Seen by MD: 15:46 Source: patient History of Present Illness Initial Comments Patient is a 29-year-old female coming in complaining of a right sided chest abscess. Per patient this started two days ago and has been progressively getting worse. She has had no fever no chills. Allergies: Coded Allergies: No Known Allergies (Verified Allergy, Unknown, 12/29/19) Home Meds Active Scripts Cephalexin (Cephalexin) 500 Mg Tablet, 1 TAB PO BID for 7 Days, #14 TAB 0 Refills Prov:BRANDI VANG MD 06/08/24 Oseltamivir Phosphate (Tamiflu) 75 Mg Cap, 1 CAP PO BID for 5 Days, #10 CAP 0 Refills Prov:BRANDI VANG MD 06/08/24 Ibuprofen (Ibuprofen) 600 Mg Tablet, 600 MG PO Q6H PRN for PAIN, #30 TAB 0 Refills Prov:DANIELLE WILKINS MD 11/02/22 Ciprofloxacin HCl (Cipro) 500 Mg Tablet, 1 TAB PO BID for 10 Days, #20 TAB 0 Refills Prov:DANIELLE WILKINS MD 11/02/22 Phenylephrine/Acetaminophn/Pnm (Theraflu Flu & Sore Throat) 1 Each Packet, 1 EACH PO QID, #20 PKT Prov:VIRGEN NAVARRO 10/04/20 Reported Medications Naproxen (Naproxen) 250 Mg Tablet, 250 MG PO BID, TAB 12/29/19 Nitrofurantoin Monohyd/M-Cryst (Nitrofurantoin Mobile-Mcr 100 mg) 100 Mg Capsule, 100 MG PO BID, CAP 12/29/19 Past Medical History Past Medical History: No Pertinent History Medical History Other: HX OF HEART MURMUR Past Surgical History: Surgical History Other: C-SEC Family History Family History: Negative Social History Social History: Negative Female( History) History: Not Applicable : 1 Para: 1 Aborts: 0 ROS Dictation CONSTITUTIONAL: No chills, no fever, no weakness, no diaphoresis, no malaise. HEAD/FACE: No signs of trauma. EENT: No eye pain, no blurred vision, no tearing, no double vision, no ear pain, no ear discharge, no nose pain, no nasal congestion, no throat pain, no throat swelling, no mouth pain. RESPIRATORY: No cough, no orthopnea, no SOB, no stridor, no wheezing. CARDIOVASCULAR: No chest pain, no edema, no palpitations, no syncope. GASTROINTESTINAL/ABDOMINAL: No abdominal pain, no constipation, no diarrhea, no nausea, no vomiting. GENITOURINARY: No abnormal discharge, no dysuria, no frequent urination, no h ematuria. No complaints of pain in the genitals. MUSCULOSKELETAL: No back pain, no gout, no joint pain, no joint swelling, no muscle pain, no muscle stiffness, no neck pain. INTEGUMENTARY: No change in color, no change in hair/nails, no dryness, lesio n, no lumps, no rash. NEUROLOGICAL/PSYCH: No anxiety, not depressed, no emotional problem, no headache, no numbness, no pre-existing deficit, no history of seizures, no tremors, no weakness. HEMATOLOGIC/LYMPHATIC: Not anemic, no history of blood clots, no apparent bleeding, no bruising, glands not swollen. All Systems Negative, Except as Noted. Physical Exam Physical Exam Dictation VITAL SIGNS: Reviewed. GENERAL APPEARANCE: Alert, oriented x3, no acute distress, obese. HEAD AND FACE: Non-traumatic. EYES: PERRL, pink conjunctivas, eyelid no trauma, anterior chamber clear. EARS: Pinnas intact and no signs of trauma or erythema. Ear canals clear and no discharge. TMs no erythema. NOSE: No discharge, no bleeding. OROPHARYNX: Mouth normal, teeth no caries, tongue pink. Pharynx clear, no erythema. Tonsils no exudates, no abscesses noted. Mucous membrane moist. NECK: Supple, non-tender, no thyromegaly, no masses, no JVD, no bruits. BREAST: Deferred. CHEST: No tenderness, no crepitus, no paradoxical movement, no retractions. LUNGS: Clear, well-ventilated, symmetric, no rales, no wheezing, no rhonchi, no stridor, good breath sounds bilaterally. HEART: Regular rate, regular rhythm, no murmur, no gallops. VASCULAR: No peripheral edema. ABDOMEN: Soft, positive bowel sounds, nondistended, no guarding, nontender, no rebound, no masses no hepatomegaly, no splenomegaly, no Gallegos's sign, no hernias. RECTAL: Deferred. GENITAL: Deferred. NEUROLOGICAL: Normal speech, gross motor function intact, gross sensory function intact. MUSCULOSKELETAL: Neck nontender, full range of motion, back nontender, full range of motion. EXTREMITIES: Nontender, full range of motion. SKIN: Color pink, dry, no turgor, no rash, no lacerations, 3 cm x 3 cm abscess in the right side of the chest. Mild erythema with drainage LYMPHATICS: Deferred. Results Laboratory and Microbiology Labs Reviewed?: Yes MDM MDM: Differential diagnosis: Abscess, cellulitis, Rationale: Tests considered and ordered secondary to shared decision making include: Previous outside records reviewed: Old ER visits. Risk of complication and/or morbidity or mortality of patient management: None Medications-Per medication reconciliation Need for hospitalization: Patient does not meet criteria for hospitalization. Need for emergency major/minor surgery: No Patient is a 29-year-old female coming in complaining of a right-sided chest abscess. Per patient this started two days ago. Cleaned sterilized anesthetized using lidocaine 1% 5 mL were used. Good anesthesia achieved. Using a blunt needle abscess was peers and using needle holders blunt dissection was carried out. Patient tolerated procedure well packed with iodoform packing. Did advised her appropriate follow up with PCP in 1-2 days for ongoing evaluation and management. ED Course Orders Procedure Category Date Status Time Lidocaine Hcl 1% 20ml PHA 12/22/24 In Process Vial (Lidocaine Hc 16:00 Tetanus,Diphtheria PHA 12/22/24 Complete Tox [Adult] (Diphther 16:00 Ceftriaxone 1g Vial PHA 12/22/24 In Process (Rocephine 1g Inj) 16:00 Aerobic Culture SHELIA 12/22/24 Logged 15:53 Anaerobic Culture SHELIA 12/22/24 Logged 15:53 Acetaminophen With PHA 12/22/24 Verified Codeine (Tylenol-Code 17:00 Current Medications Medications (Trade) Dose Ordered Sig/Yaz Route PRN Reason Start Time Stop Time Status Last Admin Dose Admin Ceftriaxone Sodium (ROCEphine 1G INJ) 1 gm ONCE IM 12/22/24 16:00 12/22/24 21:00 12/22/24 16:23 Lidocaine HCl (Lidocaine HCl 1% 20ml Vial) 20 ml ONCE INJ 12/22/24 16:00 12/22/24 21:00 12/22/24 16:23 Tetanus/ Diphtheria Toxoids Adsorbed (DiphthERIA-teTANUS TOXOID [ADULT]/ DECAVAC) 0.5 ml ONCE ONCE IM 12/22/24 16:00 12/22/24 16:03 DC 12/22/24 16:24 Vital Signs Date Time Temp Pulse Resp B/P (MAP) Pulse Ox O2 Delivery O2 Flow Rate FiO2 12/22/24 16:11 97.2 68 18 122/83 97 Room Air* 0 21 12/22/24 15:46 97.2 68 18 122/83 97 Room Air Incision and Drainage Incision and Drainage : Blade Size: Needle and instrument blunt dissection I & D Procedure: no betadine prepno sterile drapes applied Progress Right-sided chest abscess, Cleaned sterilized anesthetized using lidocaine 1% 5 mL were used. Good anesthesia achieved. Using a blunt needle abscess was peers and using needle holders blunt dissection was carried out. Patient tolerated procedure well packed with iodoform packing. DX & DISP Disposition: Discharge Departure Impression: Primary Impression: Abscess Condition: Stable Additional Instructions: FOLLOW-UP WITH PRIMARY CARE PROVIDER IN 1 TO 2 DAYS. TAKE MEDICATIONS DIRECTED HERE IN THE EMERGENCY ROOM. OKAY TO CONTINUE HOME MEDICATIONS UNLESS OTHERWISE DISCUSSED DURING YOUR VISIT IN THE EMERGENCY ROOM TODAY. RETURN TO YOUR NEAREST EMERGENCY ROOM IF SYMPTOMS WORSEN OR IF THERE IS NO IMPROVEMENT. CALL 911 IF YOU NEED IMMEDIATE ASSISTANCE. TAKE TYLENOL [id number] NEEDED AND IF NO CONTRAINDICATIONS ARE PRESENT. INCREASE ORAL HYDRATION. A WOUND CULTURE OR URINE CULTURE WAS ORDERED HERE IN THE EMERGENCY ROOM DEPARTMENT PLEASE FOLLOW-UP WITH PRIMARY CARE PROVIDER AND ADVISE THEM TO GET REPORTS FROM OUR FACILITY. IF YOU HAD ANY ERICK WRAP/SPLINTS THAT WERE APPLIED HERE, PLEASE DO NOT REMOVE THEM UNTIL YOU SEE YOUR PRIMARY CARE OR SPECIALTY. Referrals: Referrals: FINESSE RUBI DO (PCP) Time of Disposition: 16:38 YAKELIN ZUNIGA MD Dec 22, 2024 16:14
[2024-12-22] MEDS: LIDOCAINE HCL 1% 20 ML VIAL INJ SCH (16:23)
[2024-12-22] MEDS ORDERED: ACET-66 PO (16:39)
[2024-12-22] MEDS ORDERED: CEPH500B PO (16:39)
--- NOTE | 2024-12-22 16:45 | NUR ---
WOUND PACKED AND DRESSED, PT TOLERATED WELL
== END 2024-12-22 16:56 | disposition home or self-care (01) ==
LOC: EDH 15:44
DX: L02.213 Cutaneous abscess of chest wall (principal); Z79.899 Other long term (current) drug therapy
CPT/HCPCS: 99284; 10060; 87070; 87076; 90714; 96372; 90471; J0696